=== PATIENT | female | born 1975 ===

== ENCOUNTER 2016-05-22 09:15 | Emergency (ER) | payer OTHER ==
[~2016-05-22] VITALS: Ht 162.6 cm; Wt 80.0 kg
[~2016-05-22 09:15] MED LIST: CLON.5 PO; SUBO2MIS SL
[2016-05-22 09:17] VITALS: BP 141/75; PULSE 90; RESP 16; TEMP 98; O2SAT 100
[2016-05-22] MEDS ORDERED: NAPROXEN 500 MG TAB PO ONE (09:30)
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
== END 2016-05-22 10:25 | disposition home or self-care (01) ==
LOC: NETRI 09:15
DX: M54.2 Cervicalgia (principal); V43.52XA Car driver injured in collision with other type car in traffic accident, initial encounter; Y99.8 Other external cause status
CPT/HCPCS: 99283

== ENCOUNTER 2017-04-02 22:16 | Emergency (ER) | payer OTHER ==
[~2017-04-02] VITALS: Ht 160 cm; Wt 76.8 kg
[2017-04-02 22:23] VITALS: BP 141/84; PULSE 95; RESP 16; TEMP 98.2; O2SAT 98
[2017-04-02] MEDS ORDERED: BUPR4MIS SL (22:46)
[2017-04-02] MEDS ORDERED: CLON0.1T PO (22:46)
--- NOTE | 2017-04-02 22:47 | PD ---
HPI Chief Complaint: Lump, Cyst, Hernia Time Seen by Provider: 22:34 Travel History International Travel<30 days: No Contact w/Intl Traveler<30days: No Traveled to known affect area: No History of Present Illness HPI The patient was seen and examined in the presence of the nurse. This patient was concerned that she had some sort of cyst in her vagina. Not causing her pain. She just noticed that there. No drainage or fever. Duration one day. Severity is mild PFSH Past Medical History Tubal Ligation: Yes Social History Alcohol Use: No Tobacco Use: No Substance Use: No Allergies-Medications (Allergen,Severity, Reaction): Coded Allergies: No Known Allergies (Verified Adverse Reaction, Unknown, 04/02/17) Reported Meds & Prescriptions Reported Meds & Active Scripts Active Reported Suboxone Sublingual Film (Buprenorphine-Naloxone Sublingual Film) 2-0.5 Mg Film 1 Film SL DAILY Unique ID number required: Klonopin (Clonazepam) 0.5 Mg Tab 0.5 Mg PO EVERY OTHER DAY Review of Systems General / Constitutional: No: Fever HENT: No: Headaches Cardiovascular: No: Chest Pain or Discomfort Physical Exam Narrative GASTROINTESTINAL: Abdomen soft, non-tender, nondistended. Positive bowel sounds. No hepato-splenomegaly, or palpable masses. No guarding. SKIN: Focused skin assessment reveals no rash or ulcers. Skin is warm and dry. Palpation shows no induration or nodules. : External genitalia normal in appearance. There is no Bartholin's cyst. There is no tenderness. There is a palpable enlargement felt through the posterior vaginal wall which seems to correlate with stool in the rectal vault. I Data Data Last Documented VS Vital Signs Date Time Temp Pulse Resp B/P (MAP) Pulse Ox O2 Delivery O2 Flow Rate FiO2 04/02/17 22:23 98.2 95 16 141/84 (103) 98 MDM Medical Decision Making Medical Screen Exam Complete: Yes Emergency Medical Condition: Yes Medical Record Reviewed: Yes Differential Diagnosis Bartholin's cyst, abscess, boil Narrative Course I have reviewed the patient's electronic medical record. Abnormality in question seems to be stool in the rectal vault palpated through the posterior vaginal wall. No indication for emergent treatment Follow-up with primary care and return if worse Diagnosis Primary Impression: Vaginal lump Additional Instructions: The patient was advised to follow up with their physician and return if they worsen. Med/Other Pt SpecificInfo: Other Disposition: 01 DISCHARGE HOME Condition: Stable Abimael Tang MD Apr 02, 2017 22:47
[2017-04-02 23:00] VITALS: BP 140/72
== END 2017-04-02 23:01 | disposition home or self-care (01) ==
LOC: PHED 22:16
DX: N89.8 Other specified noninflammatory disorders of vagina (principal); Z79.899 Other long term (current) drug therapy
CPT/HCPCS: 99283